=== PATIENT | female | born 1980 | race Caucasian/White ===

== ENCOUNTER 2016-09-17 06:46 | Emergency (ER) | payer BC ==
[~2016-09-17] VITALS: Ht 147.3 cm; Wt 53.2 kg
[2016-09-17 06:49] VITALS: BP 124/79; PULSE 78; TEMP 36.5; O2SAT 98; Ht 147.3 cm; Wt 53.2 kg
[2016-09-17] MEDS ORDERED: HYDROCODONE/ACETAMOPHEN 5/325MG TAB PO STA (06:55)
--- NOTE | 2016-09-17 07:27 | DIAGNOSTIC IMAGING REPORT ---
LEFT FOREARM 2 VIEWS ROUTINE CLINICAL HISTORY: 36 years-old Female presenting with forearm injury, hit by metal bar at work, pain on the lateral side near the wrist. TECHNIQUE: Frontal and lateral views of the left forearm are obtained. COMPARISON: None. FINDINGS: Elbow joint and radiocarpal articulations grossly congruent. No acute fracture or malalignment. No radiopaque foreign body. Soft tissues grossly normal. IMPRESSION: No acute osseous injury of the left forearm. Electronically signed by: Rich Wright M.D. 09/17/2016 7:26 AM Dictated Date/Time: 09/17/2016 7:24 AM
--- NOTE | 2016-09-17 07:33 | EMERGENCY ROOM VISIT NOTE ---
ED Visit Note First contact with patient: 06:50 CHIEF COMPLAINT: Left forearm injury HISTORY OF PRESENT ILLNESS: This 36-year-old female presents the ER with chief complaint of left arm injury. The patient was at work loading trucks and a dock plate sprung back and hit her in the left forearm. The patient states initially the pain shot down into her hand but not now. The patient denies any numbness and tingling in her fingers. The patient is right-hand dominant. The patient denies any prior injury to her left forearm. The patient took Aleve without relief. REVIEW OF SYSTEMS: 6 system review was performed and was negative unless stated otherwise in history of present illness. PMH: The patient is healthy; appendectomy, SOCIAL HISTORY: Patient lives with her boyfriend and 2 children. The patient admits to tobacco use but denies any alcohol use. PHYSICAL EXAM: Vital Signs: Were reviewed Reviewed Nurse's notes. GENERAL: 36- year-old white female appears in no acute distress. MENTAL Status: Alert and oriented 3. LEFT FOREARM: There is swelling and tenderness of the mid to distal-forearm. There is no deformity. The skin is intact. Flexion and extension of the fingers is intact. Sensation is intact on the dorsum of the forearm and hand The fingers are warm and well perfused. EMERGENCY DEPARTMENT COURSE: The patient was evaluated. The patient's EMR medication list were reviewed. The patient was given [place] 5/325 mg one tablet by mouth for pain. X-ray of the left forearm was ordered and interpreted by the radiologist and myself. DIAGNOSTICS:LEFT FOREARM 2 VIEWS ROUTINE CLINICAL HISTORY: 36 years-old Female presenting with forearm injury, hit by metal bar at work, pain on the lateral side near the wrist. TECHNIQUE: Frontal and lateral views of the left forearm are obtained. COMPARISON: None. FINDINGS: Elbow joint and radiocarpal articulations grossly congruent. No acute fracture or malalignment. No radiopaque foreign body. Soft tissues grossly normal. IMPRESSION: No acute osseous injury of the left forearm. Electronically signed by: Rich Wright M.D. 09/17/2016 7:26 AM Dictated Date/Time: 09/17/2016 7:24 AM The patient was informed of the x-ray findings. The patient was discharged home in stable condition. DIAGNOSIS: Left forearm contusion DISCHARGE INSTRUCTIONS AND TREATMENT: Ice to the swollen area frequently over the next 2 days. Ibuprofen, 600 mg every 6 hours if needed for pain. Rest the arm. If symptoms persist or worsen, follow-up with your family doctor. Current/Historical Medications No Active Prescriptions or Reported Meds Allergies Coded Allergies: No Known Allergies (Unverified , 09/17/16) Vital Signs Date Time Temp Pulse Resp B/P (MAP) Pulse Ox O2 Delivery O2 Flow Rate FiO2 09/17/16 06:49 36.5 78 18 124/79 98 Room Air Medications Administered Medications (Trade) Dose Ordered Sig/Jaz Route Start Time Stop Time Status Last Admin Dose Admin Acetaminophen/ Hydrocodone Bitart ([place] 5/325 Tab) 1 tab NOW STAT PO 09/17/16 06:55 09/17/16 06:59 DC 09/17/16 07:21 1 TAB Departure Information Prescriptions No Active Prescriptions or Reported Meds Referrals No Doctor, Assigned (PCP) Patient Instructions [facility]
== END 2016-09-17 07:40 | disposition home or self-care (01) ==
LOC: C.EDB 06:46 → C.EDA 07:40
DX: S40.022A Contusion of left upper arm, initial encounter (principal); W22.8XXA Striking against or struck by other objects, initial encounter; F17.200 Nicotine dependence, unspecified, uncomplicated; Z98.890 Other specified postprocedural states